=== PATIENT | male | born 1955 | race Caucasian/White ===

== ENCOUNTER → 2018-05-04 | Outpatient (CLI) | payer MEDICARE, OTHER | LOC: M.RAD 09:33 | DX: M47.814 Spondylosis without myelopathy or radiculopathy, thoracic region (principal); R06.02 Shortness of breath ==

== ENCOUNTER → 2018-05-07 | Outpatient (CLI) | payer OTHER | LOC: M.CT 07:45 | DX: Z13.6 Encounter for screening for cardiovascular disorders (principal) ==

== ENCOUNTER → 2018-10-30 | Outpatient (CLI) | payer MEDICARE, OTHER | LOC: M.RAD 10:04 | DX: R05 Cough (principal); Z72.0 Tobacco use ==

== ENCOUNTER → 2020-02-20 | Outpatient (CLI) | payer MEDICARE, OTHER | LOC: M.LAB 07:23 | PROVIDERS: ATTEND Internal Medicine Gastroenterology | DX: Z11.59 Encounter for screening for other viral diseases (principal); K21.0 Gastro-esophageal reflux disease with esophagitis; R11.2 Nausea with vomiting, unspecified ==

== ENCOUNTER 2020-03-04 23:49 | Emergency (ER) | payer MEDICARE, OTHER | END 2020-03-05 04:04 | disposition home or self-care (01) | LOC: M.ERS 23:49 | DX: N20.0 Calculus of kidney (principal); Z79.899 Other long term (current) drug therapy ==